=== PATIENT | male | born 1945 | race Hispanic/Latino ===

== ENCOUNTER 2019-04-30 | Emergency (ER) | payer SELFPAY ==
[~2019-04-30] MED LIST: BACTRIM DS1 TAB PO; CEPHALEXIN500 MG PO; KEFLEX500 MG OR; NAPROSYN500 MG OR
[2019-04-30 18:15] LABS: HEMATOCRIT 38.7 % (39.0-50.0); IMMATURE GRANULOCYTES 0.1 % (0.0-5.0); MEAN CELL VOLUME 90.6 fL CALC (80.0-100.0); MEAN CORPUSCULAR HGB 29.7 pG CALC (26.0-32.0); MEAN CORPUSCULAR HGB CONC 32.8 g/L CALC (32.0-36.0); NEUT# 2.64 thou/uL (1.82-7.42); RED BLOOD COUNT 4.27 mill/uL (4.70-6.10); RED CELL DISTRI WIDTH 17.2 % (11.5-15.5)
[2019-04-30 18:21] LABS: HEMOGLOBIN 12.7 g/dl (14.0-18.0)
[2019-04-30 18:31] LABS: ALBUMIN 4.1 g/dL (3.2-5.0); ANION GAP 16 (6-22 (CALC)); BILIRUBIN, TOTAL 0.2 mg/dL (0.0-1.4); BUN 14 mg/dL (8-23); BUN/CREATININE RATIO 15 (12-20 (CALC)); CARBON DIOXIDE 27 mmol/l (22-30); CHLORIDE 104 mmol/l (95-108); CREATININE 0.9 mg/dL (0.7-1.3); GFR > 60 ML/MIN (>=60 (CALC)); GFR FOR AFR.AMER. > 60 ML/MIN (>=60 (CALC)); POTASSIUM 4.4 mmol/l (3.5-5.1); SODIUM 142 mmol/l (137-146); TOTAL PROTEIN 7.9 g/dL (6.3-8.2)
[2019-04-30 18:41] LABS: ALKALINE PHOSPHATASE 175 u/l (38-126); SGOT/AST 83 u/l (19-48)
[2019-04-30 18:42] LABS: ETHYL ALCOHOL 365 mg/dl (0-30)
== END 2019-05-01 08:32 | disposition home or self-care (01) | DRG 897 ==
PROVIDERS: Family Medicine
DX: F10.129 Alcohol abuse with intoxication, unspecified (principal); M25.562 Pain in left knee; M25.561 Pain in right knee

== ENCOUNTER 2020-04-11 14:34 | Emergency (ER) | payer SELFPAY ==
[~2020-04-11] VITALS: Ht 160 cm; Wt 77.3 kg
[2020-04-11 15:04] LABS: HEMATOCRIT 44.1 % (39.0-50.0); HEMOGLOBIN 14.3 g/dl (14.0-18.0); IMMATURE GRANULOCYTES 0.8 % (0.0-5.0); MEAN CORPUSCULAR HGB 31.4 pG CALC (26.0-32.0); MEAN CORPUSCULAR HGB CONC 32.4 g/dL CAL (32.0-36.0); NEUT# 1.65 thou/uL (1.82-7.42); RED BLOOD COUNT 4.55 mill/uL (4.70-6.10); RED CELL DISTRI WIDTH 16.5 % (11.5-15.5)
[2020-04-11 15:09] LABS: MEAN CELL VOLUME 96.9 fL CALC (80.0-100.0)
[2020-04-11 15:29] LABS: ALBUMIN 4.1 g/dL (3.2-5.0); ALKALINE PHOSPHATASE 175 u/l (38-126); BUN 5 mg/dL (8-23); BUN/CREATININE RATIO 10 (12-20 (CALC)); CARBON DIOXIDE 24 mmol/l (22-30); CHLORIDE 112 mmol/l (95-108); CREATININE 0.5 mg/dL (0.7-1.3); GFR > 60 ML/MIN (>=60 (CALC)); GFR FOR AFR.AMER. > 60 ML/MIN (>=60 (CALC)); LIPASE 50 u/l (23-300); TOTAL PROTEIN 8.4 g/dL (6.3-8.2)
[2020-04-11 15:35] LABS: ACT PARTIAL THROMBO TIME 27.2 SECONDS (20.0-32.5); INTERNATIONAL NORMALIZED RATIO 1.1 RATIO (0.7-1.3); PROTHROMBIN TIME 11.1 SECONDS (9.0-12.5)
[2020-04-11 15:40] LABS: ANION GAP 18 (6-22 (CALC)); BILIRUBIN, TOTAL 0.5 mg/dL (0.0-1.4); SGOT/AST 179 u/l (19-48); SODIUM 150 mmol/l (137-146)
[2020-04-11 15:58] LABS: ETHYL ALCOHOL 369 mg/dl (0-30)
[2020-04-11 16:21] LABS: URINE BILIRUBIN - DIPSTICK NEGATIVE (NEGATIVE); URINE BLOOD DIPSTICK MODERATE (NEGATIVE); URINE COLOR YELLOW; URINE GLUCOSE - DIPSTICK NEGATIVE (NEGATIVE); URINE KETONE NEGATIVE (NEGATIVE); URINE LEUK ESTERASE NEGATIVE (NEGATIVE); URINE NITRITE - DIPSTICK NEGATIVE (Negative); URINE PROTEIN - DIPSTICK NEGATIVE (NEG-TRACE); URINE SPECIFIC GRAVITY <=1.005; URINE UROBILINOGEN - DIPSTICK 0.2 E.U./dL (0.2)
[2020-04-11 16:48] LABS: URINE RBC 0-2 RBC/hpf (0-5); URINE SQUAMOUS EPITHELIAL CELL FEW EPI/hpf (0-FEW)
[2020-04-11 16:49] LABS: URINE BACTERIA FEW hpf; URINE TRANSITIONAL EPI. CELLS FEW hpf
[2020-04-12 08:08] VITALS: BP 134/68
== END 2020-04-12 08:08 | disposition home or self-care (01) | DRG 896 ==
LOC: ED 14:34
DX: F10.229 Alcohol dependence with intoxication, unspecified (principal); U07.1 COVID-19; S00.83XA Contusion of other part of head, initial encounter; S00.31XA Abrasion of nose, initial encounter; W19.XXXA Unspecified fall, initial encounter; Y92.89 Other specified places as the place of occurrence of the external cause; Z59.0 Homelessness

== ENCOUNTER 2020-12-16 17:47 | Emergency (ER) | payer SELFPAY ==
[~2020-12-16] VITALS: Ht 160 cm; Wt 70.0 kg
[2020-12-16 18:30] LABS: IMMATURE GRANULOCYTES 0.2 % (0.0-5.0); MEAN CORPUSCULAR HGB 30.9 pG CALC (26.0-32.0); NEUT# 4.71 thou/uL (1.82-7.42); RED BLOOD COUNT 3.46 mill/uL (4.70-6.10); RED CELL DISTRI WIDTH 15.1 % (11.5-15.5)
[2020-12-16 18:36] LABS: HEMATOCRIT 31.5 % (39.0-50.0); HEMOGLOBIN 10.7 g/dl (14.0-18.0)
[2020-12-16 18:42] LABS: ALBUMIN 3.4 g/dL (3.2-5.0); ALKALINE PHOSPHATASE 129 u/l (38-126); BILIRUBIN, TOTAL 0.6 mg/dL (0.0-1.4); BUN 5 mg/dL (8-23); BUN/CREATININE RATIO 8 (12-20 (CALC)); CARBON DIOXIDE 20 mmol/l (22-30); CHLORIDE 100 mmol/l (95-108); CREATININE 0.7 mg/dL (0.7-1.3); GFR > 60 ML/MIN (>=60 (CALC)); GFR FOR AFR.AMER. > 60 ML/MIN (>=60 (CALC)); LIPASE 29 u/l (23-300); MAGNESIUM 1.4 mg/dL (1.6-2.3); POTASSIUM 3.6 mmol/l (3.5-5.1); SGOT/AST 88 u/l (19-48); TOTAL PROTEIN 6.8 g/dL (6.3-8.2)
[2020-12-16 18:45] LABS: ANION GAP 18 (6-22 (CALC)); SODIUM 134 mmol/l (137-146)
[2020-12-16 20:43] LABS: URINE BILIRUBIN - DIPSTICK NEGATIVE (NEGATIVE); URINE BLOOD DIPSTICK NEGATIVE (NEGATIVE); URINE COLOR YELLOW; URINE GLUCOSE - DIPSTICK NEGATIVE (NEGATIVE); URINE KETONE NEGATIVE (NEGATIVE); URINE LEUK ESTERASE NEGATIVE (NEGATIVE); URINE PROTEIN - DIPSTICK NEGATIVE (NEG-TRACE); URINE SPECIFIC GRAVITY 1.015; URINE UROBILINOGEN - DIPSTICK 0.2 E.U./dL (0.2)
[2020-12-16 20:45] LABS: URINE NITRITE - DIPSTICK NEGATIVE (Negative)
[2020-12-17] MEDS ORDERED: LIBRIUM25 MG PO (04:51)
[2020-12-17 08:09] VITALS: BP 152/81
== END 2020-12-17 08:21 | disposition left against medical advice (07) | DRG 894 ==
LOC: ED 17:47
PROVIDERS: Family Medicine
DX: F10.229 Alcohol dependence with intoxication, unspecified (principal); I47.2 Ventricular tachycardia; Z20.822 Contact with and (suspected) exposure to COVID-19

== ENCOUNTER 2021-04-03 11:45 | Emergency (ER) | payer SELFPAY ==
[~2021-04-03] VITALS: Ht 160 cm; Wt 62.0 kg
[~2021-04-03 11:45] MED LIST changes: +LIBRIUM25 MG PO
[2021-04-03 12:24] LABS: HEMATOCRIT 33.7 % (39.0-50.0); HEMOGLOBIN 11.2 g/dl (14.0-18.0); IMMATURE GRANULOCYTES 0.5 % (0.0-5.0); MEAN CORPUSCULAR HGB 33.2 pG CALC (26.0-32.0); MEAN CORPUSCULAR HGB CONC 33.2 g/dL CAL (32.0-36.0); NEUT# 1.56 thou/uL (1.82-7.42); RED BLOOD COUNT 3.37 mill/uL (4.70-6.10); RED CELL DISTRI WIDTH 15.5 % (11.5-15.5)
[2021-04-03 12:44] LABS: ALBUMIN 3.3 g/dL (3.2-5.0); ALKALINE PHOSPHATASE 143 u/l (38-126); ANION GAP 14 (6-22 (CALC)); BILIRUBIN, TOTAL 0.5 mg/dL (0.0-1.4); BUN 5 mg/dL (8-23); BUN/CREATININE RATIO 8 (12-20 (CALC)); CARBON DIOXIDE 21 mmol/l (22-30); CHLORIDE 100 mmol/l (95-108); CREATININE 0.6 mg/dL (0.7-1.3); GFR > 60 ML/MIN (>=60 (CALC)); GFR FOR AFR.AMER. > 60 ML/MIN (>=60 (CALC)); LIPASE 52 u/l (23-300); POTASSIUM 3.5 mmol/l (3.5-5.1); SGOT/AST 99 u/l (19-48); SODIUM 132 mmol/l (137-146); TOTAL PROTEIN 7.1 g/dL (6.3-8.2)
[2021-04-03 12:48] LABS: ACT PARTIAL THROMBO TIME 25.7 SECONDS (20.0-32.5); INTERNATIONAL NORMALIZED RATIO 1.1 RATIO (0.7-1.3)
[2021-04-03 12:57] LABS: ETHYL ALCOHOL 347 mg/dl (0-30)
[2021-04-03 16:25] VITALS: BP 136/82
== END 2021-04-03 16:26 | DRG 999 ==
LOC: ED 11:45
PROC: 0HQ0XZZ Repair Scalp Skin, External Approach (ICD-10-PCS; principal; 2021-04-03)
PROC: 0HQGXZZ Repair Left Hand Skin, External Approach (ICD-10-PCS; 2021-04-03)
DX: S61.227A Laceration with foreign body of left little finger without damage to nail, initial encounter (principal); S06.9X1A Unspecified intracranial injury with loss of consciousness of 30 minutes or less, initial encounter; S01.01XA Laceration without foreign body of scalp, initial encounter; R41.82 Altered mental status, unspecified; F10.229 Alcohol dependence with intoxication, unspecified; X99.0XXA Assault by sharp glass, initial encounter; Y92.89 Other specified places as the place of occurrence of the external cause

== ENCOUNTER 2021-04-19 10:24 | Emergency (ER) | payer SELFPAY ==
[~2021-04-19] VITALS: Ht 160 cm; Wt 77.3 kg
[2021-04-19] MEDS ORDERED: CEPHALEXIN500 MG PO (11:04)
[2021-04-19 11:15] VITALS: BP 133/79
== END 2021-04-19 11:15 | disposition home or self-care (01) | DRG 950 ==
LOC: ED 10:24
DX: S61.412D Laceration without foreign body of left hand, subsequent encounter (principal); X58.XXXD Exposure to other specified factors, subsequent encounter

== ENCOUNTER 2021-05-01 10:23 | Emergency (ER) | payer SELFPAY ==
[~2021-05-01] VITALS: Ht 160 cm; Wt 60.0 kg
[2021-05-01 11:10] VITALS: BP 107/71
== END 2021-05-01 11:20 | disposition home or self-care (01) | DRG 950 ==
LOC: ED 10:23
DX: S01.81XD Laceration without foreign body of other part of head, subsequent encounter (principal); F10.20 Alcohol dependence, uncomplicated; X58.XXXD Exposure to other specified factors, subsequent encounter

== ENCOUNTER 2021-06-30 14:16 | Emergency (ER) | payer SELFPAY ==
[~2021-06-30] VITALS: Ht 160 cm; Wt 76.0 kg
[2021-06-30] VITALS (8 sets, daily range): BP systolic 109–162; BP diastolic 65–90
[2021-06-30 15:32] LABS: HEMATOCRIT 28.9 % (39.0-50.0); HEMOGLOBIN 9.5 g/dl (14.0-18.0); IMMATURE GRANULOCYTES 0.8 % (0.0-5.0); MEAN CORPUSCULAR HGB 28.9 pG CALC (26.0-32.0); MEAN CORPUSCULAR HGB CONC 32.9 g/dL CAL (32.0-36.0); NEUT# 1.36 thou/uL (1.82-7.42); RED BLOOD COUNT 3.29 mill/uL (4.70-6.10); RED CELL DISTRI WIDTH 17.2 % (11.5-15.5)
[2021-06-30 15:40] LABS: MEAN CELL VOLUME 87.8 fL CALC (80.0-100.0)
[2021-06-30 15:46] LABS: ALBUMIN 3.5 g/dL (3.2-5.0); ALKALINE PHOSPHATASE 198 u/l (38-126); ANION GAP 17 (6-22 (CALC)); BILIRUBIN, TOTAL 0.4 mg/dL (0.0-1.4); BUN 8 mg/dL (8-23); BUN/CREATININE RATIO 12 (12-20 (CALC)); CARBON DIOXIDE 23 mmol/l (22-30); CHLORIDE 105 mmol/l (95-108); CREATININE 0.7 mg/dL (0.7-1.3); GFR > 60 ML/MIN (>=60 (CALC)); GFR FOR AFR.AMER. > 60 ML/MIN (>=60 (CALC)); POTASSIUM 3.8 mmol/l (3.5-5.1); SGOT/AST 86 u/l (19-48); TOTAL PROTEIN 7.5 g/dL (6.3-8.2)
[2021-06-30 15:50] LABS: SODIUM 141 mmol/l (137-146)
== END 2021-06-30 17:47 | disposition home or self-care (01) | DRG 948 ==
LOC: ED 14:16
PROVIDERS: Nurse Practitioner
DX: R60.9 Edema, unspecified (principal); F10.20 Alcohol dependence, uncomplicated

== ENCOUNTER 2021-07-02 20:15 | Emergency (ER) | payer SELFPAY ==
[2021-07-02] VITALS (8 sets, daily range): BP systolic 115–139; BP diastolic 66–85
[~2021-07-02] VITALS: Ht 160 cm; Wt 160.0 kg
[2021-07-02 20:54] LABS: HEMATOCRIT 29.6 % (39.0-50.0); HEMOGLOBIN 9.8 g/dl (14.0-18.0); IMMATURE GRANULOCYTES 0.2 % (0.0-5.0); MEAN CELL VOLUME 87.1 fL CALC (80.0-100.0); MEAN CORPUSCULAR HGB 28.8 pG CALC (26.0-32.0); MEAN CORPUSCULAR HGB CONC 33.1 g/dL CAL (32.0-36.0); NEUT# 1.76 thou/uL (1.82-7.42); RED BLOOD COUNT 3.4 mill/uL (4.70-6.10); RED CELL DISTRI WIDTH 17.3 % (11.5-15.5)
[2021-07-02 21:15] LABS: ALBUMIN 3.8 g/dL (3.2-5.0); ALKALINE PHOSPHATASE 199 u/l (38-126); ANION GAP 16 (6-22 (CALC)); BILIRUBIN, TOTAL 0.4 mg/dL (0.0-1.4); BUN 6 mg/dL (8-23); BUN/CREATININE RATIO 9 (12-20 (CALC)); CARBON DIOXIDE 26 mmol/l (22-30); CHLORIDE 101 mmol/l (95-108); CREATININE 0.7 mg/dL (0.7-1.3); GFR > 60 ML/MIN (>=60 (CALC)); GFR FOR AFR.AMER. > 60 ML/MIN (>=60 (CALC)); POTASSIUM 3.9 mmol/l (3.5-5.1); SGOT/AST 96 u/l (19-48); SODIUM 139 mmol/l (137-146); TOTAL PROTEIN 7.9 g/dL (6.3-8.2)
[2021-07-02 21:25] LABS: ETHYL ALCOHOL 355 mg/dl (0-30)
[2021-07-02 21:27] LABS: MYOGLOBIN 26 ng/mL (0 - 121)
[2021-07-03] VITALS (12 sets, daily range): BP systolic 99–131; BP diastolic 55–84
== END 2021-07-03 08:30 | disposition home or self-care (01) | DRG 897 ==
LOC: ED 20:15
PROVIDERS: Emergency Medicine
DX: F10.229 Alcohol dependence with intoxication, unspecified (principal); Y90.8 Blood alcohol level of 240 mg/100 ml or more

== ENCOUNTER 2021-09-04 10:31 | Emergency (ER) | payer SELFPAY ==
[~2021-09-04] VITALS: Ht 160 cm; Wt 68.0 kg
[2021-09-04] VITALS (13 sets, daily range): BP systolic 92–130; BP diastolic 48–69
[2021-09-04 11:19] LABS: URINE BILIRUBIN - DIPSTICK NEGATIVE (NEGATIVE); URINE BLOOD DIPSTICK NEGATIVE (NEGATIVE); URINE COLOR YELLOW; URINE GLUCOSE - DIPSTICK NEGATIVE (NEGATIVE); URINE KETONE NEGATIVE (NEGATIVE); URINE LEUK ESTERASE NEGATIVE (NEGATIVE); URINE PROTEIN - DIPSTICK NEGATIVE (NEG-TRACE)
[2021-09-04 11:21] LABS: URINE NITRITE - DIPSTICK NEGATIVE (Negative)
[2021-09-04 11:55] LABS: IMMATURE GRANULOCYTES 1.2 % (0.0-5.0); MEAN CORPUSCULAR HGB 30.3 pG CALC (26.0-32.0); MEAN CORPUSCULAR HGB CONC 30.3 g/dL CAL (32.0-36.0); NEUT# 6.58 thou/uL (1.82-7.42); RED BLOOD COUNT 1.85 mill/uL (4.70-6.10); RED CELL DISTRI WIDTH 19.5 % (11.5-15.5)
[2021-09-04 11:57] LABS: HEMATOCRIT 18.5 % (39.0-50.0); HEMOGLOBIN 5.6 g/dl (14.0-18.0)
[2021-09-04 12:22] LABS: ALBUMIN 2.7 g/dL (3.2-5.0); ALKALINE PHOSPHATASE 195 u/l (38-126); ANION GAP 10 (6-22 (CALC)); BILIRUBIN, TOTAL 1.7 mg/dL (0.0-1.4); BUN 20 mg/dL (8-23); BUN/CREATININE RATIO 43 (12-20 (CALC)); CARBON DIOXIDE 27 mmol/l (22-30); CHLORIDE 95 mmol/l (95-108); CREATININE 0.5 mg/dL (0.7-1.3); GFR FOR AFR.AMER. > 60 ML/MIN (>=60 (CALC)); GFR OTHER RACES > 60 ML/MIN (>=60 (CALC)); MAGNESIUM 2.1 mg/dL (1.6-2.3); SGOT/AST 616 u/l (19-48); SODIUM 128 mmol/l (137-146); TOTAL PROTEIN 6.3 g/dL (6.3-8.2)
== END 2021-09-04 16:49 | disposition short-term general hospital (02) | DRG 378 ==
LOC: ED 10:31
PROVIDERS: Family Medicine
PROC: 30233N1 Transfusion of Nonautologous Red Blood Cells into Peripheral Vein, Percutaneous Approach (ICD-10-PCS; principal; 2021-09-04)
PROC: 30233N1 Transfusion of Nonautologous Red Blood Cells into Peripheral Vein, Percutaneous Approach (ICD-10-PCS; 2021-09-04)
DX: K92.1 Melena (principal); R78.81 Bacteremia; R16.0 Hepatomegaly, not elsewhere classified; D64.9 Anemia, unspecified; F10.20 Alcohol dependence, uncomplicated; S80.211A Abrasion, right knee, initial encounter; M25.512 Pain in left shoulder; Z59.00 Homelessness unspecified; W19.XXXA Unspecified fall, initial encounter; Z20.822 Contact with and (suspected) exposure to COVID-19
CPT/HCPCS: P9016; Q9967; S0164

== ENCOUNTER 2022-02-12 11:04 | Emergency (ER) | payer SELFPAY ==
[~2022-02-12] VITALS: Ht 160 cm; Wt 79.0 kg
[2022-02-12 11:34] VITALS: BP 148/77
== END 2022-02-12 12:29 | disposition left against medical advice (07) | DRG 951 ==
LOC: ED 11:04 → LWOBS 12:29
DX: Z53.21 Procedure and treatment not carried out due to patient leaving prior to being seen by health care provider (principal)

== ENCOUNTER 2022-03-18 08:38 | Emergency (ER) | payer SELFPAY ==
[~2022-03-18] VITALS: Ht 160 cm; Wt 58.9 kg
[2022-03-18] VITALS (16 sets, daily range): BP systolic 116–187; BP diastolic 69–108
[2022-03-18 09:05] LABS: IMMATURE GRANULOCYTES 0.2 % (0.0-5.0); MEAN CORPUSCULAR HGB 30.8 pG CALC (26.0-32.0); MEAN CORPUSCULAR HGB CONC 33.3 g/dL CAL (32.0-36.0); NEUT# 2.67 thou/uL (1.82-7.42); RED BLOOD COUNT 3.83 mill/uL (4.70-6.10); RED CELL DISTRI WIDTH 17.4 % (11.5-15.5)
[2022-03-18 09:15] LABS: HEMATOCRIT 35.4 % (39.0-50.0); HEMOGLOBIN 11.8 g/dl (14.0-18.0); MEAN CELL VOLUME 92.4 fL CALC (80.0-100.0)
[2022-03-18 09:49] LABS: ALKALINE PHOSPHATASE 275 u/l (38-126); BUN 7 mg/dL (8-23); BUN/CREATININE RATIO 10 (12-20 (CALC)); CARBON DIOXIDE 23 mmol/l (22-30); CHLORIDE 104 mmol/l (95-108); CREATININE 0.7 mg/dL (0.7-1.3); ETHYL ALCOHOL 285 mg/dl (0-30); GFR FOR AFR.AMER. > 60 ML/MIN (>=60 (CALC)); GFR OTHER RACES > 60 ML/MIN (>=60 (CALC)); POTASSIUM 3.8 mmol/l (3.5-5.1)
[2022-03-18 10:02] LABS: ALBUMIN 3.8 g/dL (3.2-5.0); ANION GAP 18 (6-22 (CALC)); BILIRUBIN, TOTAL 0.4 mg/dL (0.0-1.4); SGOT/AST 103 u/l (19-48); SODIUM 141 mmol/l (137-146); TOTAL PROTEIN 8.3 g/dL (6.3-8.2)
[2022-03-18] MEDS ORDERED: CEPHALEXIN500 M1 PO (17:37)
== END 2022-03-18 17:55 | disposition home or self-care (01) | DRG 897 ==
LOC: ED 08:38
PROVIDERS: Family Medicine
DX: F10.129 Alcohol abuse with intoxication, unspecified (principal); Y90.8 Blood alcohol level of 240 mg/100 ml or more; S50.851A Superficial foreign body of right forearm, initial encounter; W22.8XXA Striking against or struck by other objects, initial encounter

== ENCOUNTER 2023-05-04 11:35 | Emergency (ER) | payer MEDICAID ==
[2023-05-04] VITALS (50 sets, daily range): BP systolic 78–163; BP diastolic 43–89
[~2023-05-04] VITALS: Ht 160 cm; Wt 57.0 kg
[~2023-05-04 11:35] MED LIST changes: +CEPHALEXIN500 M1 PO
[2023-05-04 12:38] LABS: CARBON DIOXIDE 19 mmol/l (22-30); CHLORIDE 99 mmol/l (95-108); CREATININE 1.2 mg/dL (0.7-1.3); ETHYL ALCOHOL 0 mg/dl (0-30); GFR FOR AFR.AMER. > 60 ML/MIN (>=60 (CALC)); GFR OTHER RACES 59 ML/MIN (>=60 (CALC)); TOTAL PROTEIN 7.4 g/dL (6.3-8.2)
[2023-05-04 12:40] LABS: ALBUMIN 2.9 g/dL (3.2-5.0); ANION GAP 15 (6-22 (CALC)); BUN 30 mg/dL (8-23); BUN/CREATININE RATIO 25 (12-20 (CALC)); POTASSIUM 2.8 mmol/l (3.5-5.1); SGOT/AST 657 u/l (19-48); SODIUM 130 mmol/l (137-146)
[2023-05-04 12:41] LABS: ALKALINE PHOSPHATASE 484 u/l (38-126); CPK < 20 u/l (55-170)
[2023-05-04 13:08] LABS: HEMATOCRIT 30.4 % (39.0-50.0); HEMOGLOBIN 10.4 g/dl (14.0-18.0); IMMATURE GRANULOCYTES 2.1 % (0.0-5.0); MEAN CELL VOLUME 91.3 fL CALC (80.0-100.0); MEAN CORPUSCULAR HGB 31.2 pG CALC (26.0-32.0); MEAN CORPUSCULAR HGB CONC 34.2 g/dL CAL (32.0-36.0); PLATELET COUNT 208 thou/uL (130-400); RED BLOOD COUNT 3.33 mill/uL (4.70-6.10); RED CELL DISTRI WIDTH 14.9 % (11.5-15.5)
[2023-05-04 13:09] LABS: MANUAL DIFFERENTIAL YES
[2023-05-04 13:21] LABS: ANISOCYTOSIS FEW; BAND 2 % (0-8); POIKILOCYTOSIS FEW; TARGET CELLS MODERATE
[2023-05-04 13:25] LABS: URINE BLOOD DIPSTICK Trace-intact (NEGATIVE); URINE GLUCOSE - DIPSTICK 100 mg/dL (NEGATIVE); URINE KETONE Trace mg/dL (NEGATIVE); URINE LEUK ESTERASE Trace (NEGATIVE); URINE NITRITE - DIPSTICK Negative (Negative); URINE PROTEIN - DIPSTICK Negative (NEG-TRACE); URINE SPECIFIC GRAVITY 1.015; URINE UROBILINOGEN - DIPSTICK >=8.0 E.U./dL (0.2)
[2023-05-04 13:26] LABS: URINE COLOR Dark yellow
[2023-05-04 13:34] LABS: URINE BACTERIA MANY hpf; URINE RBC 0-2 RBC/hpf (0-5)
[2023-05-04 13:35] LABS: URINE HYALINE CAST FEW lpf (NONE-RARE)
[2023-05-05] VITALS: BP 110/54
[2023-05-05 00:10] VITALS: BP 105/53
[2023-05-05 00:50] VITALS: BP 105/53
--- NOTE | 2023-05-06 09:24 | NUR ---
PRELIMINARY BC SHOWS GRAM NEGATIVE RODS IN 2/4 VIALS. PATIENT TRANSFERRED TO [facility]. RESULTS REPORTED VERBALLY AND FAXED TO [facility] @ [phone].
== END 2023-05-05 00:52 | DRG 872 ==
LOC: ED 11:35
PROVIDERS: Family Medicine
PROC: 02HV33Z Insertion of Infusion Device into Superior Vena Cava, Percutaneous Approach (ICD-10-PCS; principal; 2023-05-04)
PROC: 3E043XZ Introduction of Vasopressor into Central Vein, Percutaneous Approach (ICD-10-PCS; 2023-05-04)
DX: A41.9 Sepsis, unspecified organism (principal); C22.9 Malignant neoplasm of liver, not specified as primary or secondary; I95.9 Hypotension, unspecified; F10.20 Alcohol dependence, uncomplicated; R82.71 Bacteriuria; Z59.00 Homelessness unspecified
CPT/HCPCS: Q9967

== ENCOUNTER 2023-05-22 19:19 | Inpatient (IN) | payer MEDICARE, MEDICAID ==
[~2023-05-22] VITALS: Ht 160 cm; Wt 57.0 kg
--- NOTE | 2023-05-22 19:19 | NUR ---
PT ARRIVED TO UNIT VIA STRETCHER FROM [facility]. PT IS BERMUDIAN SPEAKING ONLY. PT REPOSITIONED IN HOSPITAL BED. PT WAS SOILED BUT STATED HE KNOWS WHEN HE HAS TO URINATE AND HAVE A BM. PT STATED NOT REMEMBERING WHEN WAS HIS LAST BM. BOWEL SOUNDS ACTIVE. NO EDEMA NOTICE. SKIN INTACT. PT ABLE TO SELF TURN. PT STATED THAT HE HAS TROUBLE AMBULATING BUT IS POSSIBLE ABLE TO WITH ASSISTANCE. ORAL INTAKE PROVIDED. VITALS SIGNS TAKE ON RA. PT IS HYPOTENSIVE. CALL LIGHT WITHIN REACH. PT STATED UNDERSTANDING ON HOW TO USE IT. ALARM ON PT.
[2023-05-22 19:38] VITALS: BP 78/41
[2023-05-22 19:57] VITALS: BP 87/44
[2023-05-22] MEDS ORDERED: FAMOTIDINE20 M3 PO (20:08)
[2023-05-22] MEDS ORDERED: FOLIC ACID1 M1 PO (20:09)
[2023-05-22] MEDS ORDERED: MULTI-MINERALS PO (20:10)
[2023-05-22] MEDS ORDERED: B-1100 MG PO (20:10)
[2023-05-22 20:18] VITALS: BP 101/48
--- NOTE | 2023-05-22 20:35 | NUR ---
PT HAD A BP OF 78/41 @1937. NOTIFIED ELVA NICHOLSON @1939.
--- NOTE | 2023-05-22 20:35 | NUR ---
PT HAD A GLUCOSE OF 100 @1949. NOTIFIED ELVA NICHOLSON @1954.
[2023-05-22] MEDS ORDERED: SODIUM CHLORIDE 0.9% 1,000 ML IV PRN (20:45)
[2023-05-22] MEDS ORDERED: MAGNESIUM HYDROXIDE 30 ML UDC PO PRN (20:45)
[2023-05-22] MEDS ORDERED: MIDODRINE HCL 5 MG TAB PO SCH (21:00)
[2023-05-22] MEDS ORDERED: CLARIFY DOSE PO PRN (21:15)
[2023-05-22 21:33] LABS: MEAN CORPUSCULAR HGB 30.6 pG CALC (26.0-32.0); MEAN CORPUSCULAR HGB CONC 33.3 g/dL CAL (32.0-36.0); RED BLOOD COUNT 2.48 mill/uL (4.70-6.10); RED CELL DISTRI WIDTH 16.1 % (11.5-15.5)
[2023-05-22 21:34] LABS: HEMATOCRIT 22.8 % (39.0-50.0); HEMOGLOBIN 7.6 g/dl (14.0-18.0)
[2023-05-22 21:50] LABS: ALKALINE PHOSPHATASE 576 u/l (38-126); CHLORIDE 98 mmol/l (95-108); CREATININE 0.5 mg/dL (0.7-1.3); GFR FOR AFR.AMER. > 60 ML/MIN (>=60 (CALC)); GFR OTHER RACES > 60 ML/MIN (>=60 (CALC)); SGOT/AST 189 u/l (19-48); SODIUM 128 mmol/l (137-146)
[2023-05-22 21:59] LABS: ALBUMIN 1.8 g/dL (3.2-5.0); ANION GAP 5 (6-22 (CALC)); BILIRUBIN, TOTAL 1.3 mg/dL (0.2-1.3); BUN 5 mg/dL (8-23); BUN/CREATININE RATIO 10 (12-20 (CALC)); CARBON DIOXIDE 29 mmol/l (22-30); POTASSIUM 3.7 mmol/l (3.5-5.1); TOTAL PROTEIN 5.7 g/dL (6.3-8.2)
--- NOTE | 2023-05-23 | NUR ---
PT SLEEPING NO DISTRESS NOTED ON EXAM. CALL LIGHT WITHIN REACH. CHAIR ALARM ON PT IN BED.
--- NOTE | 2023-05-23 04:00 | NUR ---
PT SLEEPING NO DISTRESS NOTED ON EXAM. IV SITE CHECKED AND FLUSHED. CHAIR ALARM ON PT IN BED. CALL LIGHT WITHIN REACH.
[2023-05-23 04:20] VITALS: BP 99/51
[2023-05-23 05:47] LABS: BASO% 0.6 % (0-3); EOS% 2.7 % (0-8); HEMATOCRIT 24.4 % (39.0-50.0); IMMATURE GRANULOCYTES 0.6 % (0.0-5.0); LYMPH% 14.7 % (15-41); MEAN CELL VOLUME 94.2 fL CALC (80.0-100.0); MEAN CORPUSCULAR HGB 30.9 pG CALC (26.0-32.0); MEAN CORPUSCULAR HGB CONC 32.8 g/dL CAL (32.0-36.0); MONO% 9.6 % (2-13); NEUT# 6.06 thou/uL (1.82-7.42); NEUT% 71.8 % (42-76); RED BLOOD COUNT 2.59 mill/uL (4.70-6.10); RED CELL DISTRI WIDTH 16.6 % (11.5-15.5)
[2023-05-23 06:04] LABS: ALBUMIN 1.9 g/dL (3.2-5.0); ALKALINE PHOSPHATASE 548 u/l (38-126); ANION GAP 5 (6-22 (CALC)); BILIRUBIN, TOTAL 1.6 mg/dL (0.2-1.3); BUN 5 mg/dL (8-23); BUN/CREATININE RATIO 11 (12-20 (CALC)); CALCULATED LDLCHOLESTEROL 58 mg/dL (62-129 (CALC)); CARBON DIOXIDE 28 mmol/l (22-30); CHLORIDE 101 mmol/l (95-108); CHOLESTEROL HDL RATIO 12.5 (<4.4 (CALC)); CREATININE 0.5 mg/dL (0.7-1.3); GFR FOR AFR.AMER. > 60 ML/MIN (>=60 (CALC)); GFR OTHER RACES > 60 ML/MIN (>=60 (CALC)); HDL CHOLESTEROL 8 mg/dL (39.0-59.0); MAGNESIUM 1.6 mg/dL (1.6-2.3); POTASSIUM 4.1 mmol/l (3.5-5.1); SGOT/AST 210 u/l (19-48); SODIUM 130 mmol/l (137-146); TOTAL CHOLESTEROL 95 mg/dl (0-199); TOTAL PROTEIN 5.7 g/dL (6.3-8.2); TOTAL TRIGLYCERIDES 145 mg/dl (0-149); VLDL CHOLESTROL 29 mg/dl (0-38 (CALC))
[2023-05-23 07:14] VITALS: BP 97/48
--- NOTE | 2023-05-23 08:00 | NUR ---
ASSESSMENT COMPLETED. PT RESTING IN BED IVF INFUSING PER EMAR. REORINEATED PT TO ROOM AND CALL [facility]. FALL/SAFTEY PRECAUION IN PLACE CALL LIGHT WITHIN REACH.
--- NOTE | 2023-05-23 12:30 | NUR ---
ENCOURAGED PT LUNCH. PT STATES HAVING N APPETITE. ORAL INTAKE ENCOURAGED. FALL/SAFTEY PRECAUTION IN PLACE. CALL LIGHT WITHIN REACH.
[2023-05-23 15:08] VITALS: BP 118/67
--- NOTE | 2023-05-23 15:13 | NUR ---
PT THROWING DRINKS ON FLOOR. INFORMED PT ABOUT NOT THRWING DRINKS. REORIENATED PT TO ROOM AND CALL [facility]. PT INDICATED UNDERSTANDING. FALL/SAFTEY PRECAUTION IN PLACE CALL LIGHT WITHIN REACH
--- NOTE | 2023-05-23 16:00 | NUR ---
PT RESTING IN BED. NO DISTRESS NOTED. FALL/SAFTEY PRCAUTION IN PLACE CALL LIGHT WITHIN REACH.
[2023-05-23 19:40] VITALS: BP 107/53
[2023-05-23] MEDS ORDERED: ENOXAPARIN SODIUM 40 MG/0.4 ML SYR SC SCH (21:00)
--- NOTE | 2023-05-23 22:25 | NUR ---
ATTEMPTED TO INFORM PATIENT OF THE URINE SAMEPLE NEEDED FOR A TEST AND PT REFUSED TO LET ME OBTAIN A SAMPLE. NURSE WAS MADE AWARE.
--- NOTE | 2023-05-24 01:00 | NUR ---
PT IN BED WITH EYES CLOSED AND NO S/S OF DISTRESS. FRANCESCA ABLE TO VERBALIZE NEEDS IN ROMAN[place] WITH VRT MECHANIC STAFF MEMBER AT BEDSIDE. 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 TRILEPTAL 300MG GIVEN AND WILL CONTINUE TO MONITOR EFFECTIVENESS. UP TO TOILET WITH ONE PERSON ASSIST. AT BEDSIDE. WILL CONTINUE TO OBSERVE
[2023-05-24 03:59] VITALS: BP 123/67
[2023-05-24 06:26] LABS: BASO% 0.5 % (0-3); EOS% 1.4 % (0-8); HEMATOCRIT 23.2 % (39.0-50.0); HEMOGLOBIN 7.8 g/dl (14.0-18.0); IMMATURE GRANULOCYTES 0.6 % (0.0-5.0); LYMPH% 15.7 % (15-41); MEAN CELL VOLUME 92.4 fL CALC (80.0-100.0); MEAN CORPUSCULAR HGB 31.1 pG CALC (26.0-32.0); MEAN CORPUSCULAR HGB CONC 33.6 g/dL CAL (32.0-36.0); MONO% 9.8 % (2-13); NEUT# 7.91 thou/uL (1.82-7.42); RED BLOOD COUNT 2.51 mill/uL (4.70-6.10); RED CELL DISTRI WIDTH 16.1 % (11.5-15.5)
[2023-05-24 06:37] LABS: ANION GAP 7 (6-22 (CALC)); BUN 5 mg/dL (8-23); BUN/CREATININE RATIO 10 (12-20 (CALC)); CARBON DIOXIDE 24 mmol/l (22-30); CHLORIDE 102 mmol/l (95-108); CREATININE 0.6 mg/dL (0.7-1.3); GFR FOR AFR.AMER. > 60 ML/MIN (>=60 (CALC)); GFR OTHER RACES > 60 ML/MIN (>=60 (CALC)); SODIUM 129 mmol/l (137-146)
[2023-05-24 07:11] VITALS: BP 110/64
[2023-05-24 07:27] LABS: URINE BLOOD DIPSTICK Negative (NEGATIVE); URINE GLUCOSE - DIPSTICK Negative (NEGATIVE); URINE KETONE Trace mg/dL (NEGATIVE); URINE LEUK ESTERASE Negative (NEGATIVE); URINE NITRITE - DIPSTICK Negative (Negative); URINE PH 8.5 (4.5-8.0); URINE PROTEIN - DIPSTICK Negative (NEG-TRACE); URINE SPECIFIC GRAVITY 1.015
[2023-05-24 07:29] LABS: URINE COLOR Dark yellow
--- NOTE | 2023-05-24 08:00 | NUR ---
PT RESTING IN BED STATES APEPTITE HAS DECREASED. ENCOURAGED FOOD/ORAL INTAKE. IV INTACT/FLUSHED. IVF INFUSING PER EMAR. DISCUSSED MEDICATION AND PAIN RATE SCALE. PT ALERT TO SELF, AND NAME CORRECT. ASSESSMENT COMPLETED. FALL/SAFTEY PRECAUTION IN PLACE CALL LIGHT WITHIN REACH
[2023-05-24] MEDS ORDERED: traMADol HCL 50 MG/TAB PO PRN (09:15)
--- NOTE | 2023-05-24 09:28 | NUR ---
MEDICATED PER PAIN FOR PAIN SCALE
[2023-05-24 10:57] VITALS: BP 122/72
--- NOTE | 2023-05-24 12:19 | NUR ---
BOOKED AN INFECTIOUS DISEASE CONSULT WITH DR PERALTA VIA THE [facility] AT 1219 HRS.
[2023-05-24 15:25] VITALS: BP 125/69
--- NOTE | 2023-05-24 17:41 | NUR ---
ID CONSULTED VIA BED SIDE MEDICATED PER PAIN SCALE SEE EMAR NO DISTRESS NOTED. FALL/SAFETY PRECAUTION IN PLACE CALL LIGHT WITHIN REACH
[2023-05-24 19:15] VITALS: BP 106/56
--- NOTE | 2023-05-24 19:54 | NUR ---
NURSE ISABEL MADE AWARE OF PT TEMP OF 100.8 @1954
[2023-05-25] VITALS (7 sets, daily range): BP systolic 102–127; BP diastolic 55–72
[2023-05-25 06:24] LABS: BASO% 0.4 % (0-3); EOS% 1.4 % (0-8); HEMATOCRIT 25.4 % (39.0-50.0); HEMOGLOBIN 8.2 g/dl (14.0-18.0); IMMATURE GRANULOCYTES 0.6 % (0.0-5.0); LYMPH% 12.9 % (15-41); MEAN CELL VOLUME 95.5 fL CALC (80.0-100.0); MEAN CORPUSCULAR HGB 30.8 pG CALC (26.0-32.0); MEAN CORPUSCULAR HGB CONC 32.3 g/dL CAL (32.0-36.0); MONO% 8.7 % (2-13); NEUT# 9.47 thou/uL (1.82-7.42); RED BLOOD COUNT 2.66 mill/uL (4.70-6.10); RED CELL DISTRI WIDTH 16.2 % (11.5-15.5)
[2023-05-25 06:43] LABS: ANION GAP 5 (6-22 (CALC)); BUN 7 mg/dL (8-23); BUN/CREATININE RATIO 12 (12-20 (CALC)); CARBON DIOXIDE 24 mmol/l (22-30); CHLORIDE 105 mmol/l (95-108); CREATININE 0.6 mg/dL (0.7-1.3); GFR FOR AFR.AMER. > 60 ML/MIN (>=60 (CALC)); GFR OTHER RACES > 60 ML/MIN (>=60 (CALC)); POTASSIUM 4.1 mmol/l (3.5-5.1); SODIUM 129 mmol/l (137-146)
--- NOTE | 2023-05-25 08:10 | NUR ---
ASSESSMENT IS COMPLETED: IV SITE IS FREE FROM REDNESS OR EDEMA. HR IS REG,PULSES ARE STRONG X4,ABD IS SOFT WITH ACTIVE BS. CONTINUE TO OSBERVE AND MONITOR.
--- NOTE | 2023-05-25 12:00 | NUR ---
PT IS RELAXING IN BED WITH NO DISTRESS NOTED. IV SITE IS FREE FROM REDNESS OR EDEMA.
--- NOTE | 2023-05-25 16:15 | NUR ---
PT CONTINUES TO BE RESTING IN BED WITH NO DISTRESS NOTED. IV SITE IS FREE FROM REDNESS OR EDEMA.
--- NOTE | 2023-05-25 20:25 | NUR ---
Assessment complete. Patient moldovan speaking only, translation provided by nursing staff. Patient alert and oriented x3. Evening medication offered, patient refused Lovenox. Denies pain at this time, no further concerns expressed call light within reach.
[2023-05-26 04:57] VITALS: BP 114/59
[2023-05-26 05:37] LABS: BASO% 0.7 % (0-3); EOS% 1.3 % (0-8); HEMATOCRIT 24.2 % (39.0-50.0); HEMOGLOBIN 7.9 g/dl (14.0-18.0); IMMATURE GRANULOCYTES 0.4 % (0.0-5.0); LYMPH% 13.5 % (15-41); MEAN CELL VOLUME 94.5 fL CALC (80.0-100.0); MEAN CORPUSCULAR HGB 30.9 pG CALC (26.0-32.0); MEAN CORPUSCULAR HGB CONC 32.6 g/dL CAL (32.0-36.0); MONO% 8.9 % (2-13); NEUT# 8.82 thou/uL (1.82-7.42); NEUT% 75.2 % (42-76); RED BLOOD COUNT 2.56 mill/uL (4.70-6.10); RED CELL DISTRI WIDTH 15.8 % (11.5-15.5)
[2023-05-26 05:40] VITALS: BP 114/59
[2023-05-26 05:47] LABS: ANION GAP 7 (6-22 (CALC)); BUN 5 mg/dL (8-23); BUN/CREATININE RATIO 8 (12-20 (CALC)); CARBON DIOXIDE 21 mmol/l (22-30); CHLORIDE 106 mmol/l (95-108); CREATININE 0.6 mg/dL (0.7-1.3); GFR FOR AFR.AMER. > 60 ML/MIN (>=60 (CALC)); GFR OTHER RACES > 60 ML/MIN (>=60 (CALC)); SODIUM 130 mmol/l (137-146)
[2023-05-26 06:26] VITALS: BP 105/58
--- NOTE | 2023-05-26 08:00 | NUR ---
pt yelled at staff to not remove tray from his room. He yelled " NO FINISH. YOU GET OUT." commercial insurance underwriter understood and left tray. physical therapy came in and he yelled at them as well and told there caser shoe parts not remove his tray just in case he gets hungry again before lunch.
--- NOTE | 2023-05-26 08:29 | NUR ---
RECEIVED REPORT FROM NIGHTSHIFT NURSE. PT NOTED LAYING IN BED SUPINE, MOZAMBICAN SPK ONLY. PT IS A/0X3, REPOSITIONED PT SIT UP ON SIDE IF BED AND ENCOURAGED TO EAT BREAKFAST. PT C/O RT FLANK PAIN. WILL ADMINSITER MEDICAITON FOR PAIN PER EMAR. LANGUAGE LINE USED FOR COMMUNICATION. EDUCATED ON PLAN OF CARE AND MED SCHEDULE. CALL LIGHT WITHIN REACH AND SAFETY PRECAUTIONS IN PLACE.
--- NOTE | 2023-05-26 12:00 | NUR ---
PT RECEIVED MEDICATION FOR PAIN PER EMAR. PT SITTING UP IN CHAIR, ENCOURAGED PT TO EAT LUNCH. NO S/S OF DISTRESS. CALL LIGHT WITHIN REACH AND SAFETY PRECAUTIONS IN PLACE.
[2023-05-26] MEDS ORDERED: TRAMADOL HCL50 MG PO (12:10)
[2023-05-26 15:19] VITALS: BP 110/59
[2023-05-26 19:41] VITALS: BP 103/63
[2023-05-27 05:07] LABS: BASO% 0.4 % (0-3); EOS% 0.3 % (0-8); HEMATOCRIT 23.2 % (39.0-50.0); HEMOGLOBIN 7.8 g/dl (14.0-18.0); IMMATURE GRANULOCYTES 0.5 % (0.0-5.0); LYMPH% 11.1 % (15-41); MEAN CELL VOLUME 93.5 fL CALC (80.0-100.0); MEAN CORPUSCULAR HGB 31.5 pG CALC (26.0-32.0); MEAN CORPUSCULAR HGB CONC 33.6 g/dL CAL (32.0-36.0); MONO% 6.4 % (2-13); NEUT# 8.85 thou/uL (1.82-7.42); NEUT% 81.3 % (42-76); RED BLOOD COUNT 2.48 mill/uL (4.70-6.10); RED CELL DISTRI WIDTH 15.7 % (11.5-15.5)
[2023-05-27 05:24] VITALS: BP 116/68
[2023-05-27 05:44] LABS: ANION GAP 9 (6-22 (CALC)); BUN 7 mg/dL (8-23); BUN/CREATININE RATIO 12 (12-20 (CALC)); CARBON DIOXIDE 21 mmol/l (22-30); CHLORIDE 105 mmol/l (95-108); CREATININE 0.6 mg/dL (0.7-1.3); GFR FOR AFR.AMER. > 60 ML/MIN (>=60 (CALC)); GFR OTHER RACES > 60 ML/MIN (>=60 (CALC)); SODIUM 130 mmol/l (137-146)
[2023-05-27 06:50] VITALS: BP 112/64
--- NOTE | 2023-05-27 07:20 | NUR ---
REPORT RECEIVED FROM TOYA,RN
[2023-05-27 09:19] VITALS: BP 97/56
--- NOTE | 2023-05-27 09:20 | NUR ---
PT OOB RESTING IN RECLINER,A&O X3;PT REPORTS RT FLANK PAIN AND REQUESTS PRN PAIN MEDICATION, PT TO BE MEDICATED PER EMAR;RESPIRATIONS EVEN AND UNLABORED ON RA; IV SITE PATENT INFUSING NS @ 100ML/HR;PT DENIES ANY ADDITIONAL NEEDS AND IS ENCOURAGED TO CALL FOR ASSISTANCE IF NEEDED;FALL PRECAUTIONS IN PLACE WITH CALL LIGHT IN REACH;FREQUENT ROUNDS MADE
--- NOTE | 2023-05-27 11:45 | NUR ---
PT OOB RESTING IN RECLINER WATCHING TV;RESPIRATIONS EVEN AND UNLABORED ON RA;PT DENIES ANY CURRENT PAIN OR NEEDS;IV SITE PATENT INFUSING NS PER ORDER;PT ENCOURAGED TO CALL FOR ASSISTANCE IF NEEDED;FALL PRECAUTIONS REMAIN IN PLACE WITH CHAIR ALARM ON FOR SAFETY;CALL LIGHT IN REACH;FREQUENT ROUNDS MADE
--- NOTE | 2023-05-27 12:45 | NUR ---
AT BEDSIDE DISCUSSING POC WITH PT.
[2023-05-27 15:36] VITALS: BP 141/74
--- NOTE | 2023-05-27 16:00 | NUR ---
PT RESTING IN RECLINER;RESPIRATIONS EVEN AND UNLABORED ON RA;PT DENIES ANY CURRENT PAIN OR NEEDS;IV SITE PATENT INFUSING NS PER ORDER;CONTACT PRECAUTIONS REMAIN IN PLACE FOR HX OF ESBL;PT DENIES ANY ADDITIONAL NEEDS AND IS ENCOURAGED TO CALL FOR ASSISTANCE IF NEEDED;FALL PRECAUTIONS REMAIN IN PLACE WITH CALL LIGHT IN REACH;FREQUENT ROUNDS MADE.
[2023-05-27 19:45] VITALS: BP 105/53
--- NOTE | 2023-05-27 21:00 | NUR ---
PT IN RECLINER WAATCHING TV. NO S/S OF DISTRESS NOTED. BREATHING IS EVEN AND UNLABORED. SHIFT ASSESMNET COMPLETED. DENIES PAIN OR DISCOMFORT. CALL LIGHT IN REACH.
--- NOTE | 2023-05-28 00:32 | NUR ---
PT RESTING IN RECLINER WATCHING TV. NO S/S OF DISTRESS NOTED. BREATHING IN EVEN AND UNLABORE. PT ENCUREGE TO REST IN BED BUT OK REFUSED. CALL LIGHT IN REACH.
--- NOTE | 2023-05-28 02:56 | NUR ---
PT RESTING IN RECLINER, PT SEEM UNCOMFORTABLE IN REACLINER I ENCORAGE PT TO SLEEP IN BED BUT PT CONTINUE TO REFUSED. CALL LIGHT IN REACH AND BED IN LOWSET POSITION.
[2023-05-28 05:19] VITALS: BP 82/44
[2023-05-28 06:20] LABS: HEMATOCRIT 23.9 % (39.0-50.0); IMMATURE GRANULOCYTES 2.1 % (0.0-5.0); MEAN CELL VOLUME 93.7 fL CALC (80.0-100.0); MEAN CORPUSCULAR HGB 31.4 pG CALC (26.0-32.0); MEAN CORPUSCULAR HGB CONC 33.5 g/dL CAL (32.0-36.0); PLATELET COUNT 353 thou/uL (130-400); RED BLOOD COUNT 2.55 mill/uL (4.70-6.10); RED CELL DISTRI WIDTH 15.5 % (11.5-15.5)
[2023-05-28 06:25] LABS: ANION GAP 13 (6-22 (CALC)); BUN 7 mg/dL (8-23); BUN/CREATININE RATIO 7 (12-20 (CALC)); CHLORIDE 108 mmol/l (95-108); GFR FOR AFR.AMER. > 60 ML/MIN (>=60 (CALC)); GFR OTHER RACES > 60 ML/MIN (>=60 (CALC)); POTASSIUM 3.8 mmol/l (3.5-5.1); SODIUM 131 mmol/l (137-146)
[2023-05-28 06:31] LABS: CARBON DIOXIDE 14 mmol/l (22-30)
[2023-05-28 06:47] LABS: MANUAL DIFFERENTIAL YES
[2023-05-28 06:50] LABS: BAND 2 % (0-8)
--- NOTE | 2023-05-28 07:20 | NUR ---
REPORT RECEIVED FROM ELVA MCCARTY
[2023-05-28 07:56] VITALS: BP 76/42
[2023-05-28 08:16] VITALS: BP 90/42
--- NOTE | 2023-05-28 08:45 | NUR ---
PT RESTING IN RECLINER,A&O X2 AND NOTED TO BE [place] SPEAKING ONLY.TRANSLATION PROVIDED BY ELVA MCCARTY;ASSESSMENT COMPLETED;RESPIRATIONS EVEN AND UNLABORED ON RA;BLE EDEMA APPEARS WORSE THEN PRIOR, ENCOURAGED ELEVATION AND MD TO BE NOTIFIED;#20G TO RFA INFUSING NS @ 100ML/HR;CONTACT PRECAUTIONS REMAIN IN PLACE FOR HX OF ESBL;PT DENIES ANY ADDITIONAL NEEDS AND IS EDUCATED ON PLANS TO CHEST XRAY THIS MORNING;FALL PRECAUTIONS NOTED WITH CALL LIGHT IN REACH;FREQUENT ROUNDS MADE.
[2023-05-28] MEDS ORDERED: Meropenem 1 GM in SODIUM CHLORIDE 0.9% 100 ML IV SCH (09:00)
--- NOTE | 2023-05-28 09:00 | NUR ---
PT TRANSPORTED TO [facility] IN STABLE CONDITION VIA ACCOMPANID BY EFRAIN BECKETT
--- NOTE | 2023-05-28 09:12 | NUR ---
PT TRANSPORTED BACK TO MED/SURG ROOM 279 IN STABLE CONDITION VIA WC ACCOMPANIED BY EFRAIN BECKETT
--- NOTE | 2023-05-28 09:18 | NUR ---
LAB AT BEDSIDE
--- NOTE | 2023-05-28 10:35 | NUR ---
CRITICA LACTIC ACID OF 3.2 RECEIVED FROM LAB. NOTIFIED. NO NEW ORDERS RECEIVED.
--- NOTE | 2023-05-28 10:51 | NUR ---
CRITICAL PROCALCITONIN RECEIVED FROM LAB RESULTING IN 19.5. NOTIFIED. NO NEW ORDERS RECEIVED.
[2023-05-28 10:56] VITALS: BP 100/62
--- NOTE | 2023-05-28 11:03 | NUR ---
AT BEDSIDE DISCUSSING POC.
--- NOTE | 2023-05-28 12:13 | NUR ---
CRITICAL LACTIC ACID RECEIVED FROM LAB 2.4, NOTIFIED.
--- NOTE | 2023-05-28 12:15 | NUR ---
PT REMAINS OOB RESTING IN RECLINER;RESPIRATIONS EVEN AND UNLABORED ON RA; PT DENIES ANY CURRENT PAIN OR NEEDS;IV SITE PATENT INFUSING NS WITH EASE;ENCOURAGED TO CALL FOR ASSISTANCE IF NEEDED;CALL LIGHT IN REACH;FREQUENT ROUNDS MADE.
[2023-05-28] MEDS ORDERED: FUROSEMIDE 40 MG/4 ML SDV IV SCH (14:00)
[2023-05-28 15:22] VITALS: BP 110/52
--- NOTE | 2023-05-28 15:30 | NUR ---
PT OOB RESTING IN RECLINER;RESPIRATIONS EVEN AND UNLABORED ON RA;PT DENIES ANY CURRENT PAIN OR DISCOMFORTS;IV SITE REMOVED WITH CATHETER INTACT DUE TO EXPIRATION, NEW #22G STARTED TO LFA ON 2ND ATTEMPT BY THIS TYPING ELEMENT MACHINE OPERATOR, PT TOLERATED WELL;IV FLUIDS RESTARTED AT 100ML/HR PER ORDER;PT DENIES ANY ADDITIONAL NEEDS AND IS ENCOURAGED TO CALL FOR ASSISTANCE IF NEEDED;FALL PRECAUTIONS REMAIN IN PLACE WITH CALL LIGHT IN REACH;FREQUENT ROUNDS MADE.
[2023-05-28 19:42] VITALS: BP 98/52
[2023-05-29 04:53] VITALS: BP 94/49
[2023-05-29 06:30] LABS: HEMOGLOBIN 7.2 g/dl (14.0-18.0); MEAN CELL VOLUME 95.7 fL CALC (80.0-100.0); MEAN CORPUSCULAR HGB 31.3 pG CALC (26.0-32.0); MEAN CORPUSCULAR HGB CONC 32.7 g/dL CAL (32.0-36.0); PLATELET COUNT 298 thou/uL (130-400); RED CELL DISTRI WIDTH 16.2 % (11.5-15.5)
[2023-05-29 06:45] LABS: BUN 12 mg/dL (8-23); BUN/CREATININE RATIO 10 (12-20 (CALC)); CHLORIDE 107 mmol/l (95-108); CREATININE 1.2 mg/dL (0.7-1.3); GFR FOR AFR.AMER. > 60 ML/MIN (>=60 (CALC)); GFR OTHER RACES 59 ML/MIN (>=60 (CALC)); SODIUM 133 mmol/l (137-146)
[2023-05-29 06:47] LABS: ANION GAP 12 (6-22 (CALC)); CARBON DIOXIDE 18 mmol/l (22-30)
[2023-05-29 07:08] LABS: BAND 1 % (0-8); MANUAL DIFFERENTIAL YES
[2023-05-29 07:29] VITALS: BP 98/58
[2023-05-29 08:19] VITALS: BP 98/58
[2023-05-29] MEDS ORDERED: AZITHROMYCIN 500 MG in SODIUM CHLORIDE 0.9% 250 ML IV SCH (12:30)
[2023-05-29 14:12] VITALS: BP 109/63
[2023-05-29 15:02] VITALS: BP 109/63
[2023-05-29 19:12] VITALS: BP 98/51
[2023-05-30] VITALS (7 sets, daily range): BP systolic 84–167; BP diastolic 42–91
[2023-05-30 08:50] LABS: BASO% 0.1 % (0-3); EOS% 0.1 % (0-8); IMMATURE GRANULOCYTES 0.7 % (0.0-5.0); MEAN CELL VOLUME 93.5 fL CALC (80.0-100.0); MEAN CORPUSCULAR HGB 30.7 pG CALC (26.0-32.0); MEAN CORPUSCULAR HGB CONC 32.9 g/dL CAL (32.0-36.0); NEUT# 7.59 thou/uL (1.82-7.42); NEUT% 79.1 % (42-76); RED BLOOD COUNT 3.09 mill/uL (4.70-6.10)
[2023-05-30 08:51] LABS: HEMATOCRIT 28.9 % (39.0-50.0); HEMOGLOBIN 9.5 g/dl (14.0-18.0)
[2023-05-30 09:18] LABS: BUN 11 mg/dL (8-23); BUN/CREATININE RATIO 18 (12-20 (CALC)); CARBON DIOXIDE 21 mmol/l (22-30); CHLORIDE 105 mmol/l (95-108); CREATININE 0.6 mg/dL (0.7-1.3); GFR FOR AFR.AMER. > 60 ML/MIN (>=60 (CALC)); GFR OTHER RACES > 60 ML/MIN (>=60 (CALC)); SODIUM 134 mmol/l (137-146)
[2023-05-30 09:21] LABS: ANION GAP 11 (6-22 (CALC))
[2023-05-30] MEDS ORDERED: BISACODYL 10 MG SUPP RE PRN (13:25)
[2023-05-30] MEDS ORDERED: Polyethylene Glycol 3350 17 GM/PKT PO PRN (13:25)
[2023-05-30] MEDS ORDERED: POTASSIUM CHLORIDE 20 MEQ/TAB PO SCH (14:00)
[2023-05-31 04:01] VITALS: BP 117/68
[2023-05-31 07:16] VITALS: BP 107/64
[2023-05-31] MEDS ORDERED: SPIRONOLACTONE 25 MG/TAB PO SCH (10:30)
[2023-05-31 10:41] LABS: BASO% 0.1 % (0-3); EOS% 0.2 % (0-8); HEMATOCRIT 26.3 % (39.0-50.0); HEMOGLOBIN 8.3 g/dl (14.0-18.0); IMMATURE GRANULOCYTES 0.6 % (0.0-5.0); LYMPH% 11.9 % (15-41); MEAN CELL VOLUME 95.6 fL CALC (80.0-100.0); MEAN CORPUSCULAR HGB 30.2 pG CALC (26.0-32.0); MEAN CORPUSCULAR HGB CONC 31.6 g/dL CAL (32.0-36.0); NEUT# 9.96 thou/uL (1.82-7.42); NEUT% 82.2 % (42-76); RED BLOOD COUNT 2.75 mill/uL (4.70-6.10); RED CELL DISTRI WIDTH 15.9 % (11.5-15.5)
[2023-05-31 10:57] LABS: ALKALINE PHOSPHATASE 534 u/l (38-126); ANION GAP 8 (6-22 (CALC)); BILIRUBIN, TOTAL 1.1 mg/dL (0.2-1.3); BUN 9 mg/dL (8-23); BUN/CREATININE RATIO 16 (12-20 (CALC)); CARBON DIOXIDE 20 mmol/l (22-30); CHLORIDE 108 mmol/l (95-108); CREATININE 0.6 mg/dL (0.7-1.3); GFR FOR AFR.AMER. > 60 ML/MIN (>=60 (CALC)); GFR OTHER RACES > 60 ML/MIN (>=60 (CALC)); POTASSIUM 3.3 mmol/l (3.5-5.1); SODIUM 133 mmol/l (137-146); TOTAL PROTEIN 6.1 g/dL (6.3-8.2)
[2023-05-31 11:00] LABS: SGOT/AST 384 u/l (19-48)
[2023-05-31] MEDS ORDERED: ALDACTONE25 MG PO (11:39)
[2023-05-31] MEDS ORDERED: CEFDINIR300 MG PO (11:39)
[2023-05-31] MEDS ORDERED: CONSTULOSE10 GM/15 M PO (11:39)
[2023-05-31] MEDS ORDERED: MIDODRINE5 MG PO (11:39)
[2023-05-31 15:15] VITALS: BP 107/64
== END 2023-05-31 14:50 | DRG 871 ==
LOC: MS2 19:19
PROVIDERS: Nurse Practitioner Family; ADMIT Student in an Organized Health Care Education/Training Program; ATTEND Student in an Organized Health Care Education/Training Program
DX: A41.51 Sepsis due to Escherichia coli [E. coli] (principal); J18.9 Pneumonia, unspecified organism; R65.21 Severe sepsis with septic shock; K72.00 Acute and subacute hepatic failure without coma; Z16.12 Extended spectrum beta lactamase (ESBL) resistance; N39.0 Urinary tract infection, site not specified; Z59.02 Unsheltered homelessness; C22.9 Malignant neoplasm of liver, not specified as primary or secondary; D63.0 Anemia in neoplastic disease; K70.30 Alcoholic cirrhosis of liver without ascites; F10.10 Alcohol abuse, uncomplicated; Z66 Do not resuscitate; Z20.822 Contact with and (suspected) exposure to COVID-19
CPT/HCPCS: J1650